=== PATIENT | male | born 1995 | race Caucasian/White ===

== ENCOUNTER 2022-11-04 17:07 | Emergency (ER) | payer OTHER, SELFPAY ==
[2022-11-04 17:53] VITALS: BP 113/69; PULSE 73; RESP 16; TEMP 37.1; O2SAT 99; BMI 29.1
--- NOTE | 2022-11-04 17:53 | ED.SKABFB ---
HPI - Skin/Abscess/Foreign Bdy General Chief complaint: Skin/Abscess/Foreign Body <Elena Fong CNP - Last Filed: 11/04/22 17:56> Stated complaint: ?cyst on buttocks <Elena Fong CNP - Last Filed: 11/04/22 17:56> Time Seen by Provider: 11/04/22 18:44 <Elena Fong CNP - Last Filed: 11/04/22 17:56> Source: patient <Barbara Moran NP - Last Filed: 11/04/22 23:03> Mode of arrival: ambulatory <Barbara Moran NP - Last Filed: 11/04/22 23:03> Limitations: no limitations <Barbara Moran NP - Last Filed: 11/04/22 23:03> History of Present Illness HPI narrative: 27-year-old male presents with cyst on right buttock. States that he gets them often, the last 1 on his left buttock needed to be drained. He does not report any fevers or chills, and states that the difficult for him to sit down because of the pain. <Barbara Moran NP - Last Filed: 11/04/22 23:03> MD complaint: abscess/boil <Barbara Moran NP - Last Filed: 11/04/22 23:03> Onset (ago): day(s) (2) <Babrara Moran NP - Last Filed: 11/04/22 23:03> Tetanus up to date: yes <Barbara Moran NP - Last Filed: 11/04/22 23:03> Location: buttocks <Barbara Moran NP - Last Filed: 11/04/22 23:03> Severity: moderate <Barbara Moran NP - Last Filed: 11/04/22 23:03> Severity scale (1-10): 5 <Barbara Moran NP - Last Filed: 11/04/22 23:03> Quality: aching <Barbara Moran NP - Last Filed: 11/04/22 23:03> Pain Consistency: constant <Barbara Moran NP - Last Filed: 11/04/22 23:03> Relieving factors: none <Barbara Moran NP - Last Filed: 11/04/22 23:03> Exacerbating factors: palpation and other (Sitting) <Barbara Moran NP - Last Filed: 11/04/22 23:03> Treatments prior to arrival: attempted to drain pus at home <Barbara Moran NP - Last Filed: 11/04/22 23:03> Related Data Home medications: Previous Rx's Medication Instructions Recorded cefuroxime axetil 500 mg tablet 500 mg PO Q12H 5 days #10 tabs 11/04/22 doxycycline monohydrate 100 mg 100 mg PO BID 10 days #20 caps 11/04/22 capsule <Elena Fong CNP - Last Filed: 11/04/22 17:56> Allergies/Adverse reactions: Allergies Allergy/AdvReac Type Severity Reaction Status Date / Time No Known Allergies Allergy Verified 11/04/22 17:53 <Elena Fong CNP - Last Filed: 11/04/22 17:56> Review of Systems Review of Systems: Constitutional: No Fever, No Chills Musculoskeletal: No joint pain, No Myalgias, No Joint Swelling Skin: Positive cyst to the buttock Neuro: No Weakness No Dizziness, No Headache <Barbara Moran NP - Last Filed: 11/04/22 23:03> Yes all other systems are reviewed and are negative <Barbara Moran NP - Last Filed: 11/04/22 23:03> PMFSH Past Medical History Attestation statement: The following information was validated with the patient. <Barbara Moran NP - Last Filed: 11/04/22 23:03> Source: old records reviewed <Barbara Moran NP - Last Filed: 11/04/22 23:03> Social History Social History: Social History Advance Directives: No Advance Directives Information Provided: Yes <Elena Fong CNP - Last Filed: 11/04/22 17:56> Physical Exam Vital Signs: Vital Signs: Last Vital Signs Temp 98.8 F 11/04/22 17:53 Pulse 73 11/04/22 17:53 Resp 16 11/04/22 17:53 BP 113/69 11/04/22 17:53 Pulse Ox 99 11/04/22 17:53 O2 Del Method 11/04/22 17:53 BMI result Body Mass Index 29.1 <Elena Fong CNP - Last Filed: 11/04/22 17:56> Vital Signs: Last Vital Signs Temp 98.8 F 11/04/22 17:53 Pulse 73 11/04/22 17:53 Resp 16 11/04/22 17:53 BP 113/69 11/04/22 17:53 Pulse Ox 99 11/04/22 17:53 O2 Del Method 11/04/22 17:53 BMI result Body Mass Index 29.1 <Barbara Moran NP - Last Filed: 11/04/22 23:03> Appearance: Alert. Oriented X3. No acute distress. Eyes: Pupils equal, round and reactive to light. CVS: Normal heart rate and rhythm. Respiratory: No respiratory distress. Skin: 3 cm area of induration without fluctuance to the right buttock. 0.5 cm area of induration without fluctuance lateral on the right buttock. Extremities: Gait well balanced well coordinated. Neuro: No motor deficit. No sensory deficit. Cranial nerves 2-12 intact. <Barbara Moran NP - Last Filed: 11/04/22 23:03> Course Course Course Narrative: This is an RME: Additional HPI, ROS, PE not included below will be deferred to primary provider. Reports a cyst to the right buttock, onset was 1-2 days ago, without any active drainage, painful. Reports a history of similar in the past, requiring i&D previously, approx 3-4 years ago. Denies fevers, chills. Plan: placed back in waiting room pending bed availability <Elena Fong CNP - Last Filed: 11/04/22 17:56> This is an RME: Additional HPI, ROS, PE not included below will be deferred to primary provider. Reports a cyst to the right buttock, onset was 1-2 days ago, without any active drainage, painful. Reports a history of similar in the past, requiring i&D previously, approx 3-4 years ago. Denies fevers, chills. Plan: placed back in waiting room pending bed availability 18:52 27-year-old male presents with recurrent cyst to his buttocks. He has had multiple drained, and has a family history of hidradenitis suppurativa. Patient has an indurated area measuring approximately 3 cm in diameter without fluctuance to the right mid buttock, and a 0.5 cm area of induration lateral to that aspect. He has had multiple I&Ds of other sites, on his coccyx and left buttocks. His presentation is consistent with hidradenitis suppurativa, will treat with doxycycline and Keflex. Patient verbalized understanding of and agrees to plan of care discharge home. Verbalized understanding of signs and symptoms indicating need for emergent intervention. Supportive measures discussed. <Barbara Moran NP - Last Filed: 11/04/22 23:03> Medications Administered Discontinued Medications Generic Name Dose Route Start Last Admin Trade Name Freq PRN Reason Stop Dose Admin Cefuroxime Axetil 500 mg 11/04/22 18:56 11/04/22 19:12 Cefuroxime Axetil 500 Mg Tablet PO 11/04/22 18:57 500 mg ONCE ONE Administration Doxycycline Monohydrate 100 mg 11/04/22 18:56 11/04/22 19:12 Doxycycline Monohydrate 100 Mg Capsule PO 11/04/22 18:57 100 mg ONCE ONE Administration <Elena Fong CNP - Last Filed: 11/04/22 17:56> Medications Administered Discontinued Medications Generic Name Dose Route Start Last Admin Trade Name Freq PRN Reason Stop Dose Admin Cefuroxime Axetil 500 mg 11/04/22 18:56 11/04/22 19:12 Cefuroxime Axetil 500 Mg Tablet PO 11/04/22 18:57 500 mg ONCE ONE Administration Doxycycline Monohydrate 100 mg 11/04/22 18:56 11/04/22 19:12 Doxycycline Monohydrate 100 Mg Capsule PO 11/04/22 18:57 100 mg ONCE ONE Administration <Barbara Moran NP - Last Filed: 11/04/22 23:03> Medical Decision Making Differential Diagnosis Differential Diagnoses: The differential diagnosis associated with the presentation includes <Barbara Moran NP - Last Filed: 11/04/22 23:03> Cyst, abscess, hidradenitis <Barbara Moran NP - Last Filed: 11/04/22 23:03> External Record Review External record reviewed: Outpatient record and Prior outpatient labs <Barbara Moran NP - Last Filed: 11/04/22 23:03> Prescription Management I considered prescription management with: Antibiotic <Barbara Moran NP - Last Filed: 11/04/22 23:03> Discharge Plan Discharge Clinical Impression: Cellulitis, Suppurative hidradenitis <Elena Fong CNP - Last Filed: 11/04/22 17:56> Patient Disposition: Home, Self-Care <Elena Fong CNP - Last Filed: 11/04/22 17:56> Instructions: Cellulitis (ED), Hidradenitis Suppurativa (ED), Warm Compress or Soak (ED) <Elena Fong CNP - Last Filed: 11/04/22 17:56> Additional Instructions: You were evaluated for cyst to your buttock. Your symptoms are consistent with hidradenitis suppurativa. We are treating you with antibiotics doxycycline 100 mg twice a day for the next 10 days, and cefuroxime 500 mg twice a day for the next 5 days. Complete the entire course of these medications. Use warm compresses to help reduce swelling and promote healing. At this point, your cyst is not drainable. If your cyst changes, please present to urgent care, emergency Department or primary care for evaluation. Thank you for choosing this emergency department for evaluation. Please follow-up with primary care physician as needed. Return to the emergency department for any new, concerning, or worsening symptoms. <Elena Fong CNP - Last Filed: 11/04/22 17:56> Prescriptions: New doxycycline monohydrate 100 mg capsule 100 mg PO BID 10 Days Qty: 20 0RF cefuroxime axetil 500 mg tablet 500 mg PO Q12H 5 Days Qty: 10 0RF <Elena Fong CNP - Last Filed: 11/04/22 17:56> Interventions: ED Discharge Assessment Last Done: 11/04/22 19:11 <Elena Fong CNP - Last Filed: 11/04/22 17:56> Discharge Date/Time: 11/04/22 19:24 <CEE Quinones Last Filed: 11/04/22 17:56>
[2022-11-04] MEDS: Doxycycline Monohydrate 100 MG CAPSULE PO (19:12)
== END 2022-11-04 19:24 | disposition home or self-care (01) ==
LOC: HO.ED 19:17
PROVIDERS: Emergency Provider Emergency Medicine Emergency Medical Services
DX: L03.312 Cellulitis of back [any part except buttock and flank] (principal); L73.2 Hidradenitis suppurativa
CPT/HCPCS: 99282; 99283